=== PATIENT | female | born 1945 | race Caucasian/White ===

== ENCOUNTER 2016-05-09 11:05 | Outpatient (CLI) ==
[2015-02-02 09:24] VITALS: BMI 22.4
[2016-05-09] MEDS: PROLIA SUBCUT STA (11:11)
[2016-05-09 11:22] VITALS: BP 120/60; TEMP 98
== END 2016-05-09 11:06 | disposition home or self-care (01) ==
LOC: OPMED 11:05
PROVIDERS: ATTEND Emergency Medicine
DX: M81.0 Age-related osteoporosis without current pathological fracture (principal)
CPT/HCPCS: 96372

== ENCOUNTER 2016-08-22 13:44 | Outpatient (CLI) ==
[2015-02-02 09:24] VITALS: BMI 22.4
== END 2016-08-22 13:45 | disposition home or self-care (01) ==
LOC: RAD 13:44
PROVIDERS: ATTEND Internal Medicine
DX: Z12.31 Encounter for screening mammogram for malignant neoplasm of breast (principal)

== ENCOUNTER 2016-11-12 11:06 | Outpatient (CLI) ==
[2015-02-02 09:24] VITALS: BMI 22.4
[2016-11-12] MEDS: PROLIA SUBCUT STA (11:40)
[2016-11-12 12:05] VITALS: BP 168/72; TEMP 97.9
== END 2016-11-12 11:07 | disposition home or self-care (01) ==
LOC: OPMED 11:06
PROVIDERS: ATTEND Internal Medicine
DX: M81.0 Age-related osteoporosis without current pathological fracture (principal)
CPT/HCPCS: 96372

== ENCOUNTER 2017-02-28 07:40 | Outpatient (CLI) ==
[2015-02-02 09:24] VITALS: BMI 22.4
--- NOTE | 2017-02-28 08:58 | DI ---
EXAM: Two views of the chest. History: Short of breath Comparison: Chest radiograph 10/12/2016 Findings: Heart size is normal. No focal consolidation. No appreciable pleural fluid and no pneumo thorax. Atherosclerotic calcifications of the aortic knob. There is hyperinflation. No acute osseo us abnormalities. Impression: No acute cardiopulmonary process. Possible chronic obstructive pulmonary disease
== END 2017-02-28 07:41 | disposition home or self-care (01) ==
LOC: CAR 07:40
PROVIDERS: ATTEND Internal Medicine
DX: R06.02 Shortness of breath (principal); J44.9 Chronic obstructive pulmonary disease, unspecified
CPT/HCPCS: 93005; 93010

== ENCOUNTER 2017-03-12 06:48 | Outpatient (CLI) ==
[2015-02-02 09:24] VITALS: BMI 22.4
--- NOTE | 2017-03-13 09:35 | STRESSECHO ---
Date of Test: 03/12/17 Reason for Exam: SOB, COPD Ordering Physician: DR. TAWANNA NICHOLS Current Medications: TRAMADOL, LISINOPRIL, METOPROLOL, ELIQUIS, CLONAZEPAM, Physical Findings: S1, S2, NO S3 Resting EKG: SINUS RHYTHM/ NO ACUTE CHANGES Target Heart Rate: 125/148 STAGE MPH/GRADE HEART RATE BPM BLOOD PRESSURE mmhg RHYTHM S-T SEGMENT +/- UP DOWN SYMPTOMS,COMMENTS At Rest 65 138/60 SR X NONE 1 1.7/10% 140/82 SR X NONE 2 2.5/12% 3 3.4/14% 4 4.2/16% 5 5.0/18% Immediately after 123 SR X FATIGUE Durations of Exercise: 3:33 Maximum Heart Rate Reached: 123 Reason for Termination: FATIGUE 4 MINUTES POST EXERCISE: HR 70 BPM, BP 142/70 MMHG, SR, +/-, NO COMMENTS INTERPRETATION: 98% OXYGEN SATURATION WITH EXERCISE ON ROOM AIR METS 4.0 1. NO EVIDENCE OF ISCHEMIA BY ST-T WAVE 2. NO CHEST PAIN OR DISCOMFORT 3. NO ARRHYTHMIAS WITH EXERCISE , POST EXERCISE PAC'S/ FEW PVC'S 4. BLOOD PRESSURE RESPONSE:NORMAL NORMAL LEFT VENTRICULAR CONTRACTILITY RESTING AND POST EXERCISE MTDD
--- NOTE | 2017-03-13 09:51 | ECHOSTRESS ---
Date of Exam: 03/12/17 Ordering Physician: DR. TAWANNA NICHOLS Reason for Echo: SOB, COPD, STRESS TEST--NO ISCHEMIA M-Mode Normal Adult Results LV Dimensions Normal Adult Results AoV Opening excursions >1.6 LVEDD-base- 3.5-5.8 Ao root dimensions 2.0-3.7 LVESD-base- 3.1-4.6 L. Atrium dimensions 1.9-3.8 Post. Wall thickness 0.8-1.1 IV septum (thickness) 0.7-1.2 Post. Wall excursion 0.72-1.3 Septal motion Systolic motion R. Ventricular cavity 1.5-2.0 LVEF 60% Paradoxical septal wall motion 2-D: NORMAL LEFT VENTRICULAR CONTRACTILITY--RESTING AND POST EXERCISE M-MODE: MV: AV: TV: PV: CHAMBER SIZE: WALL MOTION: NORMAL LEFT VENTRICULAR CONTRACTILITY--RESTING AND POST EXERCISE PERICARDIUM: INTERPRETATION: 1. NORMAL LEFT VENTRICULAR CONTRACTILITY--RESTING AND POST EXERCISE MTDD
== END 2017-03-12 06:49 | disposition home or self-care (01) ==
LOC: CAR 06:48
PROVIDERS: ATTEND Internal Medicine
DX: R06.02 Shortness of breath (principal); J44.9 Chronic obstructive pulmonary disease, unspecified

== ENCOUNTER 2017-05-13 10:55 | Outpatient (CLI) ==
[2015-02-02 09:24] VITALS: BMI 22.4
[2017-05-13 11:07] VITALS: BP 182/86; TEMP 97.8
[2017-05-13] MEDS ORDERED: PROLIA SUBCUT STA (11:08)
== END 2017-05-13 10:56 | disposition home or self-care (01) ==
LOC: OPMED 10:55
PROVIDERS: ATTEND Internal Medicine
DX: M81.0 Age-related osteoporosis without current pathological fracture (principal); M19.90 Unspecified osteoarthritis, unspecified site
CPT/HCPCS: 96372

== ENCOUNTER 2017-07-01 13:51 | Outpatient (CLI) ==
[2015-02-02 09:24] VITALS: BMI 22.4
--- NOTE | 2017-07-01 15:40 | CT ---
EXAM: CT lumbar spine without contrast HISTORY: Low back pain with sciatica COMPARISON: MRI 04/27/2015 TECHNIQUE: CT of the lumbar spine performed without intravenous contrast. Coronal and sagittal refo rmatted images obtained. FINDINGS: Bones appear demineralized. Vertebral bodies normal height. No fracture. No subluxation . Multilevel marginal osteophytes. Mild multilevel intervertebral disc space narrowing. Degenerati ve changes. Sacroiliac joints intact with mild degenerative change of the aorta normal in caliber wi th extensive atherosclerosis. Colonic diverticulosis, incompletely imaged. T12-L1: No central canal or neural foraminal narrowing. L1-L2: No central canal or neural foraminal narrowing. L2-L3: Posterior disc osteophyte complex eccentric to the right with possible protrusion in this reg ion, as well as and facet arthrosis causing mild central canal and mild bilateral neural foraminal na rrowing L3-L4: Posterior disc osteophyte complex and facet arthrosis causing mild central canal and moderate bilateral neural foraminal narrowing. L4-L5: Posterior disc osteophyte complex and facet arthrosis causing mild central canal and moderate bilateral neural foraminal narrowing. L5-S1: Posterior disc osteophyte complex and facet arthrosis causing mild bilateral neural foraminal narrowing. IMPRESSION: 1. No fracture or subluxation. 2. Chronic discogenic degenerative disease and facet arthrosis. Please see segmental analysis, noti ng multilevel narrowing. Possible protrusion at L2-L3. Findings can be correlated with MRI. 3. Extensive atherosclerosis
== END 2017-07-01 13:52 | disposition home or self-care (01) ==
LOC: RAD 13:51
PROVIDERS: ATTEND Internal Medicine
DX: M54.42 Lumbago with sciatica, left side (principal)

== ENCOUNTER 2017-08-29 12:53 | Inpatient (IN) | payer OTHER ==
[2015-02-02 09:24] VITALS: BMI 22.4
[2017-08-29] MEDS ORDERED: TORADOL IVP PRN (13:17)
[2017-08-29] MEDS ORDERED: NUBAIN IVP PRN (13:17)
[2017-08-29] MEDS: DEXTROSE 5%-1/2NS IV SOLUTION 1,000 ML IV SCH (13:36)
[2017-08-29] MEDS ORDERED: PROLIA SUBCUT SCH (14:00)
[2017-08-29] MEDS ORDERED: DILAUDID 2 MG/ML SYRINGE IVP PRN (14:17)
[2017-08-29] MEDS ORDERED: VISTARIL INJ IM PRN (14:21)
[2017-08-29] MEDS ORDERED: ATROPINE SULFATE PFS IVP PRN (14:21)
[2017-08-29] MEDS ORDERED: MORPHINE 4 MG/ML VIAL IVP PRN (14:21)
[2017-08-29] MEDS ORDERED: TYLENOL PO PRN (14:21)
[2017-08-29] MEDS ORDERED: NITROSTAT SL PRN (14:21)
[2017-08-29] MEDS: TORADOL IVP SCH ×3 (14:53→23:25)
--- NOTE | 2017-08-29 15:43 | DI ---
EXAM: PA and lateral views of the chest HISTORY: Cough. COMPARISON: Chest x-ray 02/28/2017 and multiple priors FINDINGS: The cardiomediastinal silhouette is unremarkable. There is no pneumothorax or pleural eff usion. Lungs are hyperinflated. There is no consolidation, nodule or mass. The osseous structures demonstrate degenerative disease of the spine. IMPRESSION: No acute cardiopulmonary process none hyperinflated lungs suggestive of chronic obstruct kamar pulmonary disease.
[2017-08-29] MEDS: NICODERM 21 MG TD SCH (16:30)
[2017-08-29] MEDS: LOPRESSOR PO SCH (20:29)
[2017-08-29] MEDS: KLONOPIN PO SCH (20:29)
[2017-08-29] MEDS: ELIQUIS PO SCH (20:29)
[2017-08-29] MEDS: ZOCOR PO SCH (20:29)
[2017-08-29] MEDS ORDERED: NON-FORMULARY MEDICATION (Simvastatin [Simvastatin] 20 MG) PO SCH (21:00)
--- NOTE | 2017-08-29 22:47 | CT ---
EXAM: CT abdomen pelvis without contrast HISTORY: Right-sided pain and hematuria. Patient with history of appendectomy. COMPARISON: CT lumbar spine 07/01/2017 TECHNIQUE: Serial axial images of the abdomen pelvis were performed from the lung bases through the inferior pelvis without contrast. These were viewed in multiple planes. FINDINGS: Lung bases are clear. Evaluation is limited due to lack of contrast. The kidneys demonstrate no hydronephrosis, hydrourete r or stone. The liver and gallbladder are normal. The the left kidney demonstrates a low attenuation lesion measuring 2.3 cm in diameter with Hounsfield units suggestive of a cyst. The pancreas is unre markable. The stomach is distended with a large posterior stomach diverticulum noted with an air-flu id level. This is unchanged since prior examination. Small bowel in the abdomen and pelvis is unremarkable. The colon demonstrates diverticuli without di verticulitis. Uterus is unremarkable. Urinary bladder is distended. There is mild atherosclerotic disease. There is mild degenerative disease. IMPRESSION: 1. No obstructive uropathy or renal stone to account for patient right-sided flank pain and hematuri a. 2. Unchanged diverticulum of the stomach. 3. Low attenuation left renal lesion most consistent with a cyst. 4. Scattered atherosclerotic disease and degenerative disease of the lumbosacral spine. 5. Few scattered diverticuli without diverticulitis.
[2017-08-30] MEDS: DEXTROSE 5%-1/2NS IV SOLUTION 1,000 ML IV SCH ×2 (00:19→20:14)
[2017-08-30] MEDS: TORADOL IVP SCH ×3 (05:11→18:41)
[2017-08-30] MEDS: VITAMIN D PO SCH (08:38)
[2017-08-30] MEDS: NICODERM 21 MG TD SCH (08:39)
[2017-08-30] MEDS: ZESTRIL PO SCH (08:39)
[2017-08-30] MEDS: KLONOPIN PO SCH ×2 (08:40→20:13)
[2017-08-30] MEDS: ELIQUIS PO SCH ×2 (08:40→20:14)
[2017-08-30] MEDS ORDERED: DECADRON 4 MG/ML SDV IM STA (09:00)
--- NOTE | 2017-08-30 09:05 | PCM.PROG ---
Attending Provider: ATTENDING PROVIDER: Dr. TAWANNA NICHOLS This patient is seen with Roxanne Means, Nurse Practitioner. DATE OF SERVICE: 08/30/17 SUBJECTIVE: This 72 year old WHITE/ F was hospitalized 08/29/17. The patient is lying in bed, alert. The patient has been up to chair. She states pain is slightly improved. She was able to sit up in chair yesterday. CT scan showed no kidney stone, repeat urine showed 2+ blood. REVIEW OF SYSTEMS: CONSTITUTIONAL: No night sweats. No fatigue, malaise, lethargy. No fever or chills. HEENT: Eyes: No visual changes. No eye pain. No eye discharge. ENT: No runny nose. No epistaxis. No sinus pain. No odynophagia. No congestion. RESPIRATORY: No cough, no congestion. No hemoptysis. No shortness of breath. CARDIOVASCULAR: No angina symptoms. No CHF symptoms. No atypical chest pain for CAD. No palpitations. No orthopnea.. GASTROINTESTINAL: No abdominal pain. No nausea or vomiting. No diarrhea or constipation. No hematemesis. No hematochezia. GENITOURINARY: No urgency. No frequency. No dysuria. No hematuria. No obstructive symptoms. No discharge. No pain. No significant abnormal bleeding. MUSCULOSKELETAL: Right lower back pain with right sciatica. NEUROLOGICAL: Awake, alert, oriented to time, place and person. No headache. No neck pain. No syncope. No seizures. No dizziness. PSYCHIATRIC: Not anxious. No depression. No suicidal thoughts. No homicidal thoughts. SKIN: No rash. No lesions. No wounds. ENDOCRINE: No unexplained weight loss. No weight gain. HEMATOLOGIC/LYMPHATIC: No anemia. No purpura. No petechiae. No prolonged or excessive bleeding. No palpable lymph nodes. PHYSICAL EXAMINATION: GENERAL: The patient is awake, alert and oriented, lying in bed in no distress. VITAL SIGNS: Temperature 97.6 F, Pulse 58, Respiratory Rate 18, BP 160/77, Pulse Ox 100% HEENT: Head normocephalic, atraumatic. Eyes: Extraocular muscles are intact. Pupils are equal, round and reactive to light and accommodation. Ears: No lesions. Nose appeared normal. Throat: No exudate or erythema. NECK: Supple. No JVD, no carotid bruit. No lymphadenopathy or thyromegaly. LUNGS: Diminished breath sounds. Clear to auscultation. Percussion note normal. Chest symmetrical. HEART: S1, S2, no S3. No murmurs. No cyanosis or clubbing. No ascites. Pulses: Dorsalis pedis and posterior tibial pulses +1 to +2 both sides. ABDOMEN: Soft. Non-tender. Bowel sounds active. No CVA tenderness. No mass felt. EXTREMITIES: Right SI joint tenderness. No edema. Full range of motion of all extremities, equal. NEUROLOGIC: No focal deficit. Cranial nerves II through XII are grossly intact. No headache, no double vision or headache. SKIN: Not dry. Intact. Turgor-normal. LYMPHATIC: No palpable lymph nodes/no lymphedema. MUSCULOSKELETAL: Normal joints with no swelling. Muscle tone is normal. LAB REVIEW: 08/30/17 04:30 08/30/17 04:30 08/30/17 04:30: Sodium 132 L, Potassium 3.8, Chloride 99, Carbon Dioxide 25, Anion Gap 11.8, BUN 9, Creatinine 0.78, Estimated GFR (MDRD) 72.00, BUN/ Creatinine Ratio 11.53, Glucose 184 H D, Calcium 9.1, Total Bilirubin 0.5, AST 31, ALT 27, Alkaline Phosphatase 51 L, Total Protein 7.0, Albumin 3.4, Globulin 3.6, Albumin/Globulin Ratio 0.94 08/30/17 04:30: WBC 7.34, RBC 4.26, Hgb 13.5, Hct 38.8, MCV 91.1, MCH 31.7 H, MCHC 34.8, RDW Coeff of Gerry 12.3, Plt Count 234, Immature Gran % (Auto) 0.4, Neut % (Auto) 77.3, Lymph % (Auto) 18.1, Cobb % (Auto) 4.1, Eos % (Auto) 0.0, Baso % (Auto) 0.1, Immature Gran # (Auto) 0.0, Neut # (Auto) 5.7, Lymph # (Auto ) 1.3, Cobb # (Auto) 0.3 L, Eos # (Auto) 0.0, Baso # (Auto) 0.0 08/29/17 15:50: Urine Color Yellow, Urine Clarity Clear, Urine pH 6.0, Ur Specific [place] 1.010, Urine Protein Negative, Urine Glucose (UA) Negative, Urine Ketones Negative, Urine Blood 2+, Urine Nitrite Negative, Urine Bilirubin Negative, Urine Urobilinogen 0.2, Ur Leukocyte Esterase Negative, Urine Microscopic RBC 5-10, Ur Squamous Epith Cells Not present 08/29/17 13:45: WBC 8.34, RBC 4.48, Hgb 14.0, Hct 40.8, MCV 91.1, MCH 31.3 H, MCHC 34.3, RDW Coeff of Gerry 12.5, Plt Count 226, Immature Gran % (Auto) 0.2, Neut % (Auto) 81.5, Lymph % (Auto) 13.7, Cobb % (Auto) 3.6, Eos % (Auto) 0.4, Baso % (Auto) 0.6, Immature Gran # (Auto) 0.0, Neut # (Auto) 6.8, Lymph # (Auto ) 1.1, Cobb # (Auto) 0.3 L, Eos # (Auto) 0.0, Baso # (Auto) 0.1 08/29/17 13:40: Sodium 135 L, Potassium 4.8, Chloride 102, Carbon Dioxide 25, Anion Gap 12.8, BUN 8, Creatinine 0.77, Estimated GFR (MDRD) 73.00, BUN/ Creatinine Ratio 10.38, Glucose 122 H, Calcium 9.5, Total Bilirubin 0.6, AST 16 , ALT 17, Alkaline Phosphatase 56, Total Protein 7.5, Albumin 3.8, Globulin 3.7 , Albumin/Globulin Ratio 1.03 ASSESSMENT: 1. RIGHT LOWER BACK PAIN 2. RIGHT SCIATICA 3. MICROSCOPIC HEMATURIA 4. ATRIAL FIBRILLATION 5. HYPERTENSION PLAN: 1. Decadron 4 mg IM 2. Stop IV fluids Plan and coordination of the patient's care discussed in the presence of Agricultural Purchasing Agent and nurse. CONDITION: Stable SCRIBED BY: STEFANI FALK Data Management Engineer scribed while in presence of service performed by Dr. Nichols/Roxanne Means APRN on 08/30/17 ([id number])
[2017-08-30] MEDS: ULTRAM PO SCH (09:06)
[2017-08-30] MEDS: LOPRESSOR PO SCH ×2 (09:06→20:13)
--- NOTE | 2017-08-30 10:46 | HP ---
DATE OF SERVICE: 08/29/17 HISTORY OF PRESENT ILLNESS: This 72-year-old female presented with right sciatic pain, right flank pain times three days. She had CT scan of spine on 07/05 which revealed disk bulges on left. She now decides she wants a neurosurgeon. She can't get out of chair because of pain, rated as a 12 on a 1-10 scale. She has not eaten anything. PAST MEDICAL HISTORY: DJD L-spine with left sciatica Chronic pain syndrome JIMENA COPD MENSTRUAL HISTORY: 1989 PAST SURGICAL HISTORY: T & A childhood Right ovary removed Appendectomy Tubal ligation REVIEW OF SYSTEMS: CONSTITUTIONAL: Fatigue. No fever. HEENT: No sinus drainage, no sore throat. RESPIRATORY: No cough, no congestion. CARDIOVASCULAR: No atypical chest pain for coronary artery disease. No angina , CHF symptoms, palpitations or shortness of breath. GASTROINTESTINAL: GERD symptoms. Abdominal pain. Right flank pain. No melena. No GERD. GENITOURINARY: No hematuria, no polyuria. SHIPPING/RECEIVING CLERK: No blackout, no dizziness, no headache, no double vision. Gait: Limping gait, can't sit. MUSCULOSKELETAL: Osteoarthritis pain. ENDOCRINE: No weight loss, no weight gain. SKIN: Not dry, no rash. PSYCHIATRIC: Not anxious, no depression, no suicidal thoughts, no homicidal thoughts. SOCIAL HISTORY: Smoker, one pack per day for 35 years. No drug use. Single. No alcohol use. Retired. Two children (one boy, age 53; one girl, age 48). Retired. FAMILY HISTORY: Father of cancer. Mother of CAD. Brother(s) - Two brothers alive with CAD, two brothers with COPD (one age 2). Sister(s) - three alive, one , one is a twin with diabetes mellitus. MEDICATIONS: (HOME) Eliquis 5 mg b.i.d. Metoprolol 25 mg b.i.d. Lisinopril 10 mg daily Clonazepam 0.5 mg b.i.d Vitamin D 2000 mg daily Prolia 60 mg q.6month Tramadol 50 daily Simvastatin 20 mg Increase Elipta one puff daily ALLERGIES: LIPITOR (LEG CRAMPS) PHYSICAL EXAMINATION: V/S: Pulse 78, BP 132/80, 02 sat 100%. Height 5'2", BMI 22.6. Height 5'2"; weight 123.6 lbs. GENERAL APPEARANCE: Oriented times three. HEENT: Normal. NECK: No JVP, no bruits. RESPIRATORY: Lungs are clear with decreased breath sounds. CARDIOVASCULAR: S1, S2, no S3, no murmurs. No cyanosis, clubbing. No ascites. GI/ABDOMEN: No tenderness. Bowel sounds are active. EXTREMITIES: No edema, pulses +1, equal. SHIPPING/RECEIVING CLERK: Deep tendon reflexes, sensory, motor and gait all normal. RECTAL/PELVIC: Colonoscopy in 2010. Pelvic: Mammogram 09/03 [facility] [place] ASSESSMENT: 1. RIGHT RENAL COLIC QUESTIONABLE 2. HEMATURIA 3. ACUTE RIGHT SCIATICA, RIGHT SIDE PAIN 4. DJD L-SPINE WITH LEFT SCIATICA 5. CHRONIC PAIN SYNDROME 6. JIMENA 7. COPD 8. ATRIAL FIBRILLATION ON ELIQUIS 9. OSTEOPOROSIS 10. HYPERTENSION 11. DYSLIPIDEMIA 12. NONCOMPLIANCE 13. MOLE ON BACK PLAN: 1. Admit with routine telemetry orders. 2. 1000 cc D5 1/2 NS [address] scan of abdomen and pelvis - renal stone protocol 4. Toradol 30 mg IV now and 6 hourly 5. Nubain 2 mg q.6 hourly for pain 6. Continue all home medications 7. Regular diet 8. CBC, CMP daily 9. UA - strain all urine TIME SPENT: More than 70 minutes. MTDD
--- NOTE | 2017-08-30 13:57 | PN ---
DATE OF SERVICE: 08/30/17 SUBJECTIVE: The patient was hospitalized with right renal colic type of symptoms. The patient's condition is starting to improve in a way of less pain on the right flank area. The patient's CT scan of the abdomen and pelvis didn't show any renal stones or problem with any urological problems. The patient's flank pain could be muscle spasm with sciatica. She is being given 1 cc of Decadron. Pain seems to be under control. The patient is up and about. The patient may eventually need workup for her hematuria. She had 2+ blood in the urine. Will repeat the U/A tomorrow. The patient is afebrile with no evidence of urinary tract infection. CONDITION: stable. TIME SPENT: More than 30 minutes. Plan and coordination of the patient's care discussed in the presence of nurse. [place]
--- NOTE | 2017-08-30 16:46 | CT ---
EXAM: CT LUMBAR SPINE HISTORY: Back pain TECHNIQUE: CT lumbar spine without contrast. 3-mm axial sections. Coronal and sagittal reformation s. COMPARISON: 07/01/2017 FINDINGS: Bones appear demineralized. No acute fracture or spondylolisthesis. Vertebral body height is mainta ined. There is subtle scoliosis. Sacroiliac joints have mild arthropathy. Diffuse degenerative dis c and facet disease most apparent at L2/L3 where there is a broad-based disc bulging leading to moder ate central canal stenosis, greater right paracentral. Bilateral neural foraminal narrowing at this level, relatively severe on the right. In addition, there is a broad-based disc bulging and severe f acet arthropathy at L4/L5 leading to at least mild central canal stenosis and bilateral neural forami nal narrowing. These findings are similar to that previously seen. No paraspinal fluid collection o r inflammatory process is obvious. Incidental note of atherosclerotic disease. IMPRESSION: Similar findings of that seen on 07/01/2017 including degenerative disc and facet disease most appare nt L2/L3. Correlation with MRI can be made if indicated.
[2017-08-30] MEDS: ZOCOR PO SCH (20:13)
[2017-08-31] MEDS: TORADOL IVP SCH ×5 (00:25→23:56)
[2017-08-31] MEDS ORDERED: DILAUDID 2 MG/ML SYRINGE IVP PRN (03:11)
[2017-08-31] MEDS ORDERED: DECADRON 4 MG/ML SDV IVP STA (07:46)
[2017-08-31] MEDS: NICODERM 21 MG TD SCH (08:54)
[2017-08-31] MEDS: ZESTRIL PO SCH (08:55)
[2017-08-31] MEDS: LOPRESSOR PO SCH ×2 (08:55→21:21)
[2017-08-31] MEDS: ELIQUIS PO SCH ×2 (08:55→21:22)
[2017-08-31] MEDS: KLONOPIN PO SCH ×2 (09:07→21:24)
[2017-08-31] MEDS: VITAMIN D PO SCH (09:07)
[2017-08-31] MEDS: ULTRAM PO SCH (10:20)
[2017-08-31] MEDS: ZOCOR PO SCH (21:24)
[2017-09-01] MEDS: TORADOL IVP SCH ×4 (05:46→23:39)
[2017-09-01] MEDS: ULTRAM PO SCH (09:37)
[2017-09-01] MEDS: LOPRESSOR PO SCH ×2 (09:37→21:19)
[2017-09-01] MEDS: KLONOPIN PO SCH ×2 (09:37→21:19)
[2017-09-01] MEDS: ZESTRIL PO SCH (09:38)
[2017-09-01] MEDS: VITAMIN D PO SCH (09:38)
[2017-09-01] MEDS: ELIQUIS PO SCH ×2 (09:38→21:19)
[2017-09-01] MEDS: NICODERM 21 MG TD SCH (09:42)
[2017-09-01] MEDS: ZOCOR PO SCH (21:19)
[2017-09-02] MEDS: TORADOL IVP SCH ×4 (05:26→23:21)
[2017-09-02] MEDS: LOPRESSOR PO SCH ×2 (08:21→20:31)
[2017-09-02] MEDS: NICODERM 21 MG TD SCH (08:21)
[2017-09-02] MEDS: VITAMIN D PO SCH (08:21)
[2017-09-02] MEDS: KLONOPIN PO SCH ×2 (08:22→20:31)
[2017-09-02] MEDS ORDERED: ZOFRAN 4 MG/2 ML IVP STA (08:23)
[2017-09-02] MEDS ORDERED: PROTONIX PO STA (08:24)
[2017-09-02] MEDS: ULTRAM PO SCH (08:25)
[2017-09-02] MEDS: ZESTRIL PO SCH (08:29)
[2017-09-02] MEDS: ELIQUIS PO SCH ×2 (08:29→20:31)
--- NOTE | 2017-09-02 09:22 | PCM.PROG ---
Attending Provider: ATTENDING PROVIDER: Dr. TAWANNA NICHOLS This patient is seen with Roxanne Means, Nurse Practitioner. DATE OF SERVICE: 09/02/17 SUBJECTIVE: This 72 year old WHITE/ F was hospitalized 08/29/17. The patient is sitting up in bed alert. She is feeling nauseous. She has had increased belching this morning. Will give Protonix and Zofran. REVIEW OF SYSTEMS: CONSTITUTIONAL: No night sweats. No fatigue, malaise, lethargy. No fever or chills. HEENT: Eyes: No visual changes. No eye pain. No eye discharge. ENT: No runny nose. No epistaxis. No sinus pain. No odynophagia. No congestion. RESPIRATORY: No cough, no congestion. No hemoptysis. No shortness of breath. CARDIOVASCULAR: No angina symptoms. No CHF symptoms. No atypical chest pain for CAD. No palpitations. No orthopnea.. GASTROINTESTINAL: Nausea. No abdominal pain. No vomiting. No diarrhea or constipation. No hematemesis. No hematochezia. GENITOURINARY: No urgency. No frequency. No dysuria. No hematuria. No obstructive symptoms. No discharge. No pain. No significant abnormal bleeding. MUSCULOSKELETAL: Chronic back pain. NEUROLOGICAL: Awake, alert, oriented to time, place and person. No headache. No neck pain. No syncope. No seizures. No dizziness. PSYCHIATRIC: Not anxious. No depression. No suicidal thoughts. No homicidal thoughts. SKIN: No rash. No lesions. No wounds. ENDOCRINE: No unexplained weight loss. No weight gain. HEMATOLOGIC/LYMPHATIC: No anemia. No purpura. No petechiae. No prolonged or excessive bleeding. No palpable lymph nodes. PHYSICAL EXAMINATION: GENERAL: The patient is awake, alert and oriented, sitting in bed in no distress. VITAL SIGNS: Temperature 97.4 F, Pulse 58, Respiratory Rate 20, BP 131/68, Pulse Ox 100% HEENT: Head normocephalic, atraumatic. Eyes: Extraocular muscles are intact. Pupils are equal, round and reactive to light and accommodation. Ears: No lesions. Nose appeared normal. Throat: No exudate or erythema. NECK: Supple. No JVD, no carotid bruit. No lymphadenopathy or thyromegaly. LUNGS: Diminished breath sounds. Clear to auscultation. Percussion note normal. Chest symmetrical. HEART: S1, S2, no S3. No murmurs. No cyanosis or clubbing. No ascites. Pulses: Dorsalis pedis and posterior tibial pulses +1 to +2 both sides. ABDOMEN: Soft. Non-tender. Bowel sounds active. No CVA tenderness. No mass felt. EXTREMITIES: No edema. Full range of motion of all extremities, equal. NEUROLOGIC: No focal deficit. Cranial nerves II through XII are grossly intact. No headache, no double vision or headache. SKIN: Not dry. Intact. Turgor-normal. LYMPHATIC: No palpable lymph nodes/no lymphedema. MUSCULOSKELETAL: Normal joints with no swelling. Muscle tone is normal. LAB REVIEW: 09/02/17 04:50 09/02/17 04:50 09/02/17 04:50: Sodium 128 L, Potassium 3.9, Chloride 97 L, Carbon Dioxide 22 L , Anion Gap 12.9, BUN 24 H, Creatinine 0.93, Estimated GFR (MDRD) 59.00, BUN/ Creatinine Ratio 25.80, Glucose 108, Calcium 8.3, Total Bilirubin 0.4, AST 10 L , ALT 12, Alkaline Phosphatase 39 L, Total Protein 5.5 L, Albumin 2.9 L, Globulin 2.6, Albumin/Globulin Ratio 1.12 09/02/17 04:50: WBC 15.25 H, RBC 4.14 L, Hgb 13.1, Hct 37.2, MCV 89.9, MCH 31.6 H, MCHC 35.2, RDW Coeff of Gerry 12.4, Plt Count 234, Immature Gran % (Auto) 0.4, Neut % (Auto) 71.7, Lymph % (Auto) 17.0, [place] % (Auto) 9.9, Eos % (Auto) 0.7, Baso % (Auto) 0.3, Immature Gran # (Auto) 0.1, Neut # (Auto) 11.0 H, Lymph # ( Auto) 2.6, [place] # (Auto) 1.5, Eos # (Auto) 0.1, Baso # (Auto) 0.0 09/01/17 09:35: Urine Color Yellow, Urine Clarity Clear, Urine pH 6.0, Ur Specific [place] 1.010, Urine Protein Negative, Urine Glucose (UA) Negative, Urine Ketones Negative, Urine Blood 1+, Urine Nitrite Negative, Urine Bilirubin Negative, Urine Urobilinogen 0.2, Ur Leukocyte Esterase Trace, Urine Microscopic RBC 2-5, Ur Squamous Epith Cells 0-2 ASSESSMENT: 1. GERD 2. RIGHT LOWER BACK PAIN 3. RIGHT SCIATICA 4. MICROSCOPIC HEMATURIA 5. ATRIAL FIBRILLATION 6. HYPERTENSION PLAN: 1. Protonix 40 mg p.o. now 2. Zofran 4 mg IV Plan and coordination of the patient's care discussed in the presence of Legal Support Assistant and nurse. CONDITION: Stable SCRIBED BY: STEFANI FALK Door Slinger scribed while in presence of service performed by Dr. Nichols/Roxanne Means APRN on 09/02/17 ([id number])
[2017-09-02] MEDS: ZOCOR PO SCH (20:30)
[2017-09-03] MEDS: TORADOL IVP SCH (05:40)
[2017-09-03] MEDS: KLONOPIN PO SCH (08:11)
[2017-09-03] MEDS: ZESTRIL PO SCH (08:11)
[2017-09-03] MEDS: LOPRESSOR PO SCH (08:11)
[2017-09-03] MEDS: VITAMIN D PO SCH (08:11)
[2017-09-03] MEDS: NICODERM 21 MG TD SCH (08:11)
[2017-09-03] MEDS: ULTRAM PO SCH (08:11)
[2017-09-03] MEDS: ELIQUIS PO SCH (08:12)
[2017-09-03 09:51] VITALS: BP 125/70; TEMP 97.8
--- NOTE | 2017-09-03 10:32 | CM.DICTOOL ---
ADMISSION: 08/29/17 12:53 DISCHARGE: SEPTEMBER 03, 2017 DATE OF SERVICE: 09/03/17 FINAL DIAGNOSIS RIGHT SCIATICA, ACUTE RIGHT RENAL COLIC HEMATURIA ATRIAL FIB (ON ELIQUIS) HYPERTENSION COPD DJD LUMBAR SPINE CHRONIC PAIN SYNDROME DYSLIPIDEMIA OSTEOPOROSIS HYPONATREMIA APPENDECTOMY OOPHORECTOMY, RIGHT HISTORY OF ABLATION OF NERVES IN THE BACK (DR. MCGUIRE) LAST VITALS Temp Pulse Resp BP Pulse Ox 98.2 F 60 18 124/67 97 09/03/17 05:22 09/03/17 05:22 09/03/17 05:22 09/03/17 05:22 09/03/17 05:22 TAKE THESE MEDICATIONS AT HOME Apixaban (Eliquis) 5 mg PO BID [facility] Last Admin: 09/03/17 08:12 Dose: 5 mg Cholecalciferol (Vitamin D) 2,000 unit PO DAILY [facility] Last Admin: 09/03/17 08:11 Dose: 2,000 unit Clonazepam (Klonopin) 0.5 mg PO BID [facility] Last Admin: 09/03/17 08:11 Dose: 0.5 mg Lisinopril (Zestril) 10 mg PO DAILY [facility] Last Admin: 09/03/17 08:11 Dose: 10 mg Metoprolol Tartrate (Lopressor) 25 mg PO BID [facility] Last Admin: 09/03/17 08:11 Dose: 25 mg Simvastatin (Zocor) 20 mg PO BEDTIME [facility] Last Admin: 09/02/17 20:30 Dose: 20 mg Tramadol HCl (Ultram) 50 mg PO BID PRN Last Admin: 09/03/17 08:11 Dose: 50 mg Prolia 60 mg SQ as directed Last Admin: ALLERGIES Iodinated Contrast- Oral and IV Dye [Iodinated Contrast Media - IV Dye] Allergy (Severe, Verified 01/15/15 00:28) Hives Iodine and Iodide Containing Produc Adverse Reaction (Verified 01/15/15 00:28) Sulfa (Sulfonamide Antibiotics) Adverse Reaction (Verified 01/15/15 00:28) Discontinued Medications None NEW PRESCRIPTIONS: Ultram 50 mg take 1 twice a day as needed for pain Lisinopril 10 mg take 1 daily (not a new RX) SMOKING: Advised to stop smoking DISEASE SPECIFIC EDUCATION: Medications Appointments Activity Hyponatremia LAB REVIEW: 09/03/17 04:15 09/03/17 04:15 09/03/17 04:15: Sodium 129 L, Potassium 4.1, Chloride 101, Carbon Dioxide 22 L, Anion Gap 10.1, BUN 14, Creatinine 0.80, Estimated GFR (MDRD) 70.00, BUN/ Creatinine Ratio 17.50, Glucose 125 H, Calcium 8.6, Total Bilirubin 0.5, AST 16 , ALT 16, Alkaline Phosphatase 47 L, Total Protein 5.6 L, Albumin 2.6 L, Globulin 3.0, Albumin/Globulin Ratio 0.87 09/03/17 04:15: WBC 12.35 H, RBC 4.04 L, Hgb 12.6, Hct 36.0 L, MCV 89.1, MCH 31.2 H, MCHC 35.0, RDW Coeff of Gerry 12.5, Plt Count 206, Immature Gran % (Auto) 0.4, Neut % (Auto) 73.6, Lymph % (Auto) 16.4, Cole % (Auto) 7.8, Eos % (Auto) 1.4, Baso % (Auto) 0.4, Immature Gran # (Auto) 0.1, Neut # (Auto) 9.1 H, Lymph # (Auto) 2.0, Cole # (Auto) 1.0, Eos # (Auto) 0.2, Baso # (Auto) 0.1 PLAN: Discharge home Diet: Regular as tolerated Activity: Gradually resume as tolerated Avoid lifting, pushing, pulling An appointment is scheduled with Dr. Whatley on September 04 at 10 am An appointment is scheduled with /Roxanne Means APRN on September 09 at 12 noon Full Code status is requested by the patient Ms. Arnold is alert and oriented. She lives alone and is independent with Activities of Daily Living. She is independent with transfers and with ambulation in the room and hallway. Gait is slow and steady. Ms. Arnold is continent of bowel and bladder. Meal intakes are good at 50-100%. No abdominal pain or nausea reported. Chronic type back pain is reported by the patient that is rated at a 5 on the pain scale. No decubitus ulcers, skin rashes or irritation noted at time of discharge. Uriah Patel MD [facility] Sánchez
--- NOTE | 2017-09-03 13:30 | PCM.PROG ---
Attending Provider: ATTENDING PROVIDER: Dr. TAWANNA NICHOLS This patient is seen with Roxanne Means, Nurse Practitioner. DATE OF SERVICE: 09/03/17 SUBJECTIVE: This 72 year old WHITE/ F was hospitalized 08/29/17. The patient is lying in bed, alert. She is feeling better today. Back pain under control. She has been eating well, up and about walking. REVIEW OF SYSTEMS: CONSTITUTIONAL: No night sweats. No fatigue, malaise, lethargy. No fever or chills. HEENT: Eyes: No visual changes. No eye pain. No eye discharge. ENT: No runny nose. No epistaxis. No sinus pain. No odynophagia. No congestion. RESPIRATORY: No cough, no congestion. No hemoptysis. No shortness of breath. CARDIOVASCULAR: No angina symptoms. No CHF symptoms. No atypical chest pain for CAD. No palpitations. No orthopnea.. GASTROINTESTINAL: No abdominal pain. No nausea or vomiting. No diarrhea or constipation. No hematemesis. No hematochezia. GENITOURINARY: No urgency. No frequency. No dysuria. No hematuria. No obstructive symptoms. No discharge. No pain. No significant abnormal bleeding. MUSCULOSKELETAL: Chronic back pain. NEUROLOGICAL: Awake, alert, oriented to time, place and person. No headache. No neck pain. No syncope. No seizures. No dizziness. PSYCHIATRIC: Not anxious. No depression. No suicidal thoughts. No homicidal thoughts. SKIN: No rash. No lesions. No wounds. ENDOCRINE: No unexplained weight loss. No weight gain. HEMATOLOGIC/LYMPHATIC: No anemia. No purpura. No petechiae. No prolonged or excessive bleeding. No palpable lymph nodes. PHYSICAL EXAMINATION: GENERAL: The patient is awake, alert and oriented, lying/sitting in bed in no distress. VITAL SIGNS: Temperature 98.2 F, Pulse 60, Respiratory Rate 18, BP 124/67, Pulse Ox 97% HEENT: Head normocephalic, atraumatic. Eyes: Extraocular muscles are intact. Pupils are equal, round and reactive to light and accommodation. Ears: No lesions. Nose appeared normal. Throat: No exudate or erythema. NECK: Supple. No JVD, no carotid bruit. No lymphadenopathy or thyromegaly. LUNGS: Diminished breath sounds. Clear to auscultation. Percussion note normal. Chest symmetrical. HEART: S1, S2, no S3. No murmurs. No cyanosis or clubbing. No ascites. Pulses: Dorsalis pedis and posterior tibial pulses +1 to +2 both sides. ABDOMEN: Soft. Non-tender. Bowel sounds active. No CVA tenderness. No mass felt. EXTREMITIES: No edema. Full range of motion of all extremities, equal. NEUROLOGIC: No focal deficit. Cranial nerves II through XII are grossly intact. No headache, no double vision or headache. SKIN: Not dry. Intact. Turgor-normal. LYMPHATIC: No palpable lymph nodes/no lymphedema. MUSCULOSKELETAL: Normal joints with no swelling. Muscle tone is normal. LAB REVIEW: 09/03/17 04:15 09/03/17 04:15 09/03/17 04:15: Sodium 129 L, Potassium 4.1, Chloride 101, Carbon Dioxide 22 L, Anion Gap 10.1, BUN 14, Creatinine 0.80, Estimated GFR (MDRD) 70.00, BUN/ Creatinine Ratio 17.50, Glucose 125 H, Calcium 8.6, Total Bilirubin 0.5, AST 16 , ALT 16, Alkaline Phosphatase 47 L, Total Protein 5.6 L, Albumin 2.6 L, Globulin 3.0, Albumin/Globulin Ratio 0.87 09/03/17 04:15: WBC 12.35 H, RBC 4.04 L, Hgb 12.6, Hct 36.0 L, MCV 89.1, MCH 31.2 H, MCHC 35.0, RDW Coeff of Gerry 12.5, Plt Count 206, Immature Gran % (Auto) 0.4, Neut % (Auto) 73.6, Lymph % (Auto) 16.4, [place] % (Auto) 7.8, Eos % (Auto) 1.4, Baso % (Auto) 0.4, Immature Gran # (Auto) 0.1, Neut # (Auto) 9.1 H, Lymph # (Auto) 2.0, [place] # (Auto) 1.0, Eos # (Auto) 0.2, Baso # (Auto) 0.1 ASSESSMENT: 1. GERD 2. RIGHT LOWER BACK PAIN 3. RIGHT SCIATICA 4. MICROSCOPIC HEMATURIA 5. ATRIAL FIBRILLATION 6. HYPERTENSION 7. HYPONATREMIA PLAN: 1. Discharge home 2. Increase Ultram to twice a day q.8hr #60 3. Will discuss referral to [facility] for followup appointment 4. Limit fluid intake 5. Increase sodium Plan and coordination of the patient's care discussed in the presence of Riddler Operator and nurse. CONDITION: Stable SCRIBED BY: STEFANI FALK Addiction Professional scribed while in presence of service performed by Dr. Nichols/Roxanne Means APRN on 09/03/17 ([id number])
--- NOTE | 2017-09-03 15:22 | PN ---
DATE OF SERVICE: 09/02/17 SUBJECTIVE: The patient was seen with the Nurse Practitioner. The patient's condition is stable. The patient still feels weak and tired. The patient explained about hematuria and differential diagnosis. The rest of the physical exam is negative. The patient may need echocardiogram to evaluate LV function as the patient is fatigued and tired. CONDITION: Stable. TIME SPENT: More than 30 minutes. Plan and coordination of the patient's care discussed in the presence of nurse. DUKE
--- NOTE | 2017-09-03 15:30 | PN ---
DATE OF SERVICE: 09/01/17 SUBJECTIVE: The patient's right flank pain seems to be somewhat better. She feels tired. We will check her urine. She has hematuria but she is going to need further investigation. REVIEW OF SYSTEMS: CONSTITUTIONAL: No night sweats. Fatigue. No fever or chills. Weakness. HEENT: Eyes: No visual changes. No eye pain. No eye discharge. ENT: No runny nose. No epistaxis. No sinus pain. No sore throat. No odynophagia. No congestion. RESPIRATORY: No cough, no congestion. No hemoptysis. No shortness of breath. CARDIOVASCULAR: No angina symptoms. No CHF symptoms. No atypical chest pain for CAD. No palpitations. No orthopnea. GASTROINTESTINAL: Mild right flank pain. No nausea or vomiting. No diarrhea or constipation. No hematemesis. No hematochezia. GENITOURINARY: No urgency. No frequency. No dysuria. No hematuria. No obstructive symptoms. No discharge. No pain. No significant abnormal bleeding. MUSCULOSKELETAL: No musculoskeletal pain; no joint swelling. NEUROLOGICAL: No headache. No neck pain. No syncope. No seizures. No dizziness. PSYCHIATRIC: Not anxious. No depression. No suicidal thoughts. No homicidal thoughts. SKIN: No rash. No lesions. No wounds. ENDOCRINE: No unexplained weight loss. No weight gain. HEMATOLOGIC/LYMPHATIC: No anemia. No purpura. No petechiae. No prolonged or excessive bleeding. No palpable lymph nodes. PHYSICAL EXAMINATION: GENERAL: The patient is oriented to time, place and person. HEENT: Head normocephalic, atraumatic. Eyes: Extraocular muscles are intact. Pupils are equal, round and reactive to light and accommodation. Ears: No lesions. Nose appeared normal. Throat: No exudate or erythema. NECK: Supple. No JVD, no carotid bruit. No lymphadenopathy or thyromegaly. LUNGS: Clear to auscultation. Percussion note normal. Chest symmetrical. HEART: S1, S2, no S3. No murmurs. No cyanosis or clubbing. No ascites. Pulses: Dorsalis pedis and posterior tibial pulses +1 to +2 both sides. ABDOMEN: Soft. Nontender. Bowel sounds active. No CVA tenderness. No mass felt. EXTREMITIES: No edema. Full range of motion of all extremities, equal. NEUROLOGIC: No focal deficit. Cranial nerves II through XII are grossly intact. No headache, no double vision or headache. SKIN: Not dry. Intact. Turgor - normal. LYMPHATIC: No palpable lymph nodes/no lymphedema. MUSCULOSKELETAL: Normal joints with no swelling. Muscle tone is normal. CONDITION: Stable. PLAN: 1. Will continue to monitor Hematuria TIME SPENT: More than 30 minutes. Plan and coordination of the patient's care discussed in the presence of nurse. DUKE
--- NOTE | 2017-09-04 11:24 | DS ---
DATE OF SERVICE: 09/03/17 FINAL DIAGNOSIS: 1. Right sciatica, acute 2. right renal colic 3. Hematuria 4. Atrial fibrillation (on Eliquis) 5. Hypertension 6. COPD 7. DJD lumbar spine 8. Chronic pain syndrome 9. Dyslipidemia 10.Osteoporosis 11.Hyponatremia 12.Appendectomy 13.Oophorectomy, right 14.History of ablation of nerves in the back (Dr. Sanford) LAST VITALS: Temperature 98.2, pulse 60, respiratory rate 18, blood pressure 124/67 and pulse ox 97%. DISCHARGE INSTRUCTIONS: Discharge home. An appointment is scheduled with Dr. Whatley on September 04 at 10am. An appointment is scheduled with /Roxanne Means APRN on September 09 at 12 noon. Full code status requested by the patient. MEDICATIONS AT DISCHARGE: Eliquis 5mg PO twice a day Vitamin D 2,000 unit PO daily Klonopin 0.5mg PO twice a day Zestril 10mg PO daily Lopressor 25mg PO twice a day Zocor 20mg PO bedtime Ultram 50mg PO twice a day PRN Prolia 60mg SQ as directed ALLERGIES: Iodinated Contrast Iodine and Iodide containing Product Sulfa NEW PRESCRIPTIONS: Ultram 50mg take one twice a day as needed for pain Lisinopril 10mg take one daily (not a new RX) DIET INSTRUCTIONS: Regular as tolerated ACTIVITY: Gradually resume as tolerated. Avoid lifting, pushing and pulling. SMOKING: Advised to stop smoking DISEASE SPECIFIC EDUCATION: Medications Appointments Activity Hyponatremia HOSPITAL COURSE: This is a 72 year old white female who presented to our office with acute back pain, acute right flank pain. She stated that it had gradually worsened over the past 24-48 hours. She did feel that had some urinary pressure. A urine was done in out office showing 3+ blood however was otherwise normal. She was admitted with right renal colic, acute right sciatica and hematuria. CT renal stone protocol was negative for stone. She was placed on Toradol 30mg IV Q 6 hours, given 1cc of Decadron in our office and then given another cc of Decadron 4mg the second day. With this her pain did significantly improve. CT of the L spine shows she does have degenerative disc disease of the Lumbar spine which is chronic for her however the scan were unchanged from previous. Her blood pressure remained under control while she was in the hospital. Yesterday she experienced some nausea and abdominal pain. We gave her some Zofran 4mg PO as well as Protonix 40mg PO and this resolved. This morning she has been eating well. She has been up and about walking in her room. On admission she was unable to bare weight on the right side and was limping. She states her pain was significantly resolved. Repeat urine in the hospital on the second day showed 2+ blood and then we are now down to 1+ blood on discharge however we will refer to urology to followup with hematuria. She has an appointment with Dr. Moise in [place] on Saturday and we will followup with her later in the office. She is discharged in stable condition. TIME SPENT: More than 60 minutes. DUKE
--- NOTE | 2017-09-04 15:24 | PN ---
DATE OF SERVICE: 08/31/17 SUBJECTIVE: 72 year old white female hospitalized with right flank pain which has improved. CT scan was negative for renal stone. U/A still showed blood. She may need workup for hematuria. The patient's CT scan of the L spine showed DJD spine. REVIEW OF SYSTEMS: CONSTITUTIONAL: No night sweats. No fatigue, malaise, lethargy. No fever or chills. HEENT: Eyes: No visual changes. No eye pain. No eye discharge. ENT: No runny nose. No epistaxis. No sinus pain. No sore throat. No odynophagia. No congestion. RESPIRATORY: No cough, no congestion. No hemoptysis. No shortness of breath. CARDIOVASCULAR: No angina symptoms. No CHF symptoms. No atypical chest pain for CAD. No palpitations. No orthopnea. GASTROINTESTINAL: No abdominal pain. No nausea or vomiting. No diarrhea or constipation. No hematemesis. No hematochezia. GENITOURINARY: No urgency. No frequency. No dysuria. No hematuria. No obstructive symptoms. No discharge. No pain. No significant abnormal bleeding. MUSCULOSKELETAL: No musculoskeletal pain; no joint swelling. Lower back pain. NEUROLOGICAL: No headache. No neck pain. No syncope. No seizures. No dizziness. PSYCHIATRIC: Not anxious. No depression. No suicidal thoughts. No homicidal thoughts. SKIN: No rash. No lesions. No wounds. ENDOCRINE: No unexplained weight loss. No weight gain. HEMATOLOGIC/LYMPHATIC: No anemia. No purpura. No petechiae. No prolonged or excessive bleeding. No palpable lymph nodes. PHYSICAL EXAMINATION: GENERAL: The patient is oriented to time, place and person. VITAL SIGNS: Temperature 97.7, pulse 50, respiratory rate 18, blood pressure 146/66 and pulse ox 99%. HEENT: Head normocephalic, atraumatic. Eyes: Extraocular muscles are intact. Pupils are equal, round and reactive to light and accommodation. Ears: No lesions. Nose appeared normal. Throat: No exudate or erythema. NECK: Supple. No JVD, no carotid bruit. No lymphadenopathy or thyromegaly. LUNGS: Decreased breath sounds but clear to auscultation. Percussion note normal. Chest symmetrical. HEART: S1, S2, no S3. No murmurs. No cyanosis or clubbing. No ascites. Pulses: Dorsalis pedis and posterior tibial pulses +1 to +2 both sides. ABDOMEN: Soft. Nontender. Bowel sounds active. No CVA tenderness. No mass felt. EXTREMITIES: No edema. Full range of motion of all extremities, equal. NEUROLOGIC: No focal deficit. Cranial nerves II through XII are grossly intact. No headache, no double vision or headache. SKIN: Not dry. Intact. Turgor - normal. LYMPHATIC: No palpable lymph nodes/no lymphedema. MUSCULOSKELETAL: Normal joints with no swelling. Muscle tone is normal. LABS: Hgb 13, hct 37, WBC 11,000 normal differential, creatinine 0.7, BUN 14, potassium 4 ASSESSMENT: 1. Right flank pain seems to be resolving 2. Hematuria of unknown etiology 3. Lower back pain, sciatica likely from radiculopathy PLAN: 1. Continue Dilaudid 2. Toradol 3. Continue all the rest of the medication including Lisinopril and Metoprolol , Nitroglycerin and Simvastatin. CONDITION: Stable CARDIOVASCULAR STATUS: Stable TIME SPENT: More than 30 minutes. Plan and coordination of the patient's care discussed in the presence of nurse. DUKE
--- NOTE | 2017-09-05 09:34 | PN ---
DATE OF SERVICE: 09/03/17 SUBJECTIVE: The patient was seen and examined with the nurse practitioner. The patient's condition has improved. She is up and about. The pain is much less, still has + 1 blood. Will refer her to urologist and is to be seen tomorrow by Dr. Whatley. Her cardiovascular status is stable. Back pain is under control. TIME SPENT: More than 30 minutes. Plan and coordination of the patient's care discussed in the presence of nurse. DUKE
--- NOTE | 2017-09-05 09:36 | PN ---
CODING FOR BILLING 08/29/17 ADMISSION DAY LEVEL 5 08/30/17 INTERMEDIATE 08/31/17 INTERMEDIATE 09/01/17 INTERMEDIATE 09/02/17 INTERMEDIATE 09/03/17 DISCHARGE MTDD
== END 2017-09-03 12:49 | disposition home or self-care (01) | DRG 694 ==
LOC: MEDSURG A 12:53
PROVIDERS: ADMIT Internal Medicine; ATTEND Internal Medicine
DX: N23 Unspecified renal colic (principal); E87.1 Hypo-osmolality and hyponatremia; R31.9 Hematuria, unspecified; R10.9 Unspecified abdominal pain; J44.9 Chronic obstructive pulmonary disease, unspecified; G89.4 Chronic pain syndrome; F41.1 Generalized anxiety disorder; K21.9 Gastro-esophageal reflux disease without esophagitis; E78.5 Hyperlipidemia, unspecified; I10 Essential (primary) hypertension; I48.91 Unspecified atrial fibrillation; M47.9 Spondylosis, unspecified; M81.0 Age-related osteoporosis without current pathological fracture; M54.9 Dorsalgia, unspecified; Z91.19 Patient's noncompliance with other medical treatment and regimen; Z79.01 Long term (current) use of anticoagulants
CPT/HCPCS: 36415; 74176; 80053; 81001; 85025; 93005; 93010

== ENCOUNTER 2017-11-21 11:58 | Outpatient (CLI) | payer OTHER ==
[2015-02-02 09:24] VITALS: BMI 22.4
[2017-11-21 12:08] VITALS: BP 118/63; TEMP 98.2
[2017-11-21] MEDS ORDERED: PROLIA SUBCUT STA (12:09)
== END 2017-11-21 11:59 | disposition home or self-care (01) ==
LOC: OPMED 11:58
PROVIDERS: ATTEND Internal Medicine
DX: M81.0 Age-related osteoporosis without current pathological fracture (principal)
CPT/HCPCS: 96372

== ENCOUNTER 2018-01-07 13:59 | Outpatient (CLI) | payer OTHER ==
[2015-02-02 09:24] VITALS: BMI 22.4
--- NOTE | 2018-01-07 14:42 | CT ---
EXAM: CT of the chest without contrast History: Chest pain and back pain. Comparison: Chest CT 02/02/2015 Technique: Multiplanar CT images through the chest were obtained without the administration of IV co ntrast Findings: Heart size is upper limits of normal. No pericardial effusion. Coronary calcifications. No thoracic aortic aneurysm. No pathologically enlarged thoracic lymph nodes. No consolidation. B iapical lung scarring. No pleural fluid and no pneumothorax. No suspicious lung masses or lung nodu les. Within the visualized upper abdomen, no acute findings. Gastric fundal diverticulum again noted. No acute osseous abnormalities. Impression: 1. No acute intrathoracic process. 2. Coronary artery disease
== END 2018-01-07 14:00 | disposition home or self-care (01) ==
LOC: RAD 13:59
PROVIDERS: ATTEND Internal Medicine
DX: M54.9 Dorsalgia, unspecified (principal)

== ENCOUNTER 2018-05-29 14:10 | Outpatient (CLI) ==
[2015-02-02 09:24] VITALS: BMI 22.4
[2018-05-29 14:29] VITALS: BP 172/90; TEMP 97.2
[2018-05-29] MEDS ORDERED: PROLIA SUBCUT STA (14:32)
== END 2018-05-29 14:11 | disposition home or self-care (01) ==
LOC: OPMED 14:10
PROVIDERS: ATTEND Internal Medicine
DX: M81.0 Age-related osteoporosis without current pathological fracture (principal)
CPT/HCPCS: 96372

== ENCOUNTER 2018-07-07 08:34 | Outpatient (CLI) ==
[2015-02-02 09:24] VITALS: BMI 22.4
--- NOTE | 2018-07-07 09:29 | US ---
EXAM: Right upper quadrant abdominal ultrasound. History: Right upper quadrant abdominal pain. Comparison: Abdominal ultrasound 01/17/2015 Technique: Multiple sonographic images through the abdomen were obtained. Color duplex Doppler was used to interrogate vascular flow. Findings: The liver is not enlarged. No focal liver lesions identified sonographically. The visualized pancre as demonstrates no gross abnormality. No abdominal ascites. Limited visualization of the right kidn ey demonstrates no evidence for hydronephrosis. There is antegrade flow within the main portal vein. No shadowing gallstones. Gallbladder wall is not thickened. Common bile duct measures 0.3 cm in c aliber. Impression: Unremarkable exam.
--- NOTE | 2018-07-07 09:32 | DI ---
EXAM: Two views of the chest. History: Cough. Comparison: Chest radiograph 08/29/2017 Findings: Heart size is normal. No focal consolidation. No appreciable pleural fluid and no pneumo thorax. Atherosclerotic vascular calcifications. No acute osseous abnormalities. Impression: No acute cardiopulmonary process
== END 2018-07-07 08:35 | disposition home or self-care (01) ==
LOC: RAD 08:34
PROVIDERS: ATTEND Internal Medicine
DX: R10.11 Right upper quadrant pain (principal); R05 Cough

== ENCOUNTER 2018-07-15 08:43 | Outpatient (CLI) ==
[2015-02-02 09:24] VITALS: BMI 22.4
--- NOTE | 2018-07-15 11:09 | NM ---
Exam: Hepatobiliary scintigraphy with gallbladder ejection fraction Date of exam: 07/15/2018 Radiopharmaceutical: 5.0 mCi Tc-99m mebrofenin i.v. and 2.0 mcg Kinevac i.v. HISTORY: Abdominal pain right upper quadrant FINDINGS: Following intravenous administration of technetium-99m mebrofenin, sequential abdominal im ages were obtained. There is prompt and uniform accumulation of the radiotracer by the liver. There is normal filling of the intrahepatic ducts, common bile duct, and gallbladder. There is normal exc retion of radiotracer into the duodenum. In order to evaluate the contracted oral response of the gallbladder to cholecystokinin, sincalide wa s administered by slow intravenous infusion over 30 minutes. Sequential imaging was continued after the start of sincalide infusion. These images demonstrate good contraction of the gallbladder. The calculated gallbladder ejection fraction is 73%. In normal subjects, the lower limit of normal gallbladder ejection fraction is 35%. Impression: 1. Normal contractile response of the gallbladder to sincalide infusion 2. Normal biliary imaging study.
== END 2018-07-15 08:44 | disposition home or self-care (01) ==
LOC: RAD 08:43
PROVIDERS: ATTEND Internal Medicine
DX: R10.11 Right upper quadrant pain (principal)

== ENCOUNTER 2023-11-22 18:44 | Observation (INO) ==
--- NOTE | 2023-11-22 19:08 | ED.PDOC ---
General ED Provider: Dr. DEIDRE GILL MD Chief Complaint: Syncope Stated Complaint: 78 yo WF seen in this ER a few hours ago for elevated BP after stopping her losartan/HCT for a couple of day and her BP in the ER was 211/97 and dropped to 154 systolic prior to DC. After leaving the ER, she and her daughter went to eat dinner at a [employer] restaurant and after leaving didn't felt right and complains of pre-syncopal sx. At home, she check her BP and it was 67/54 and clammy per daughter. She passed out and was unresponsive for 4 minutes total. No witnessed seizure. She did have some chest pain, described as "indigestion" that has resolved. No associated SOB but ? palpitation. She was given 0.2 mg of clonidine in the ER around 3 PM. She had neg Cardidolyte stress test on Oct [address] scan of chest on Nov 18. Previous syncope 2 years ago. Hx of COPD, pre-diabetes, HTN, lipids, anxiety, and chronic back pain. Still smokes 1/3-1/2 PPD. Strong family history of UT and CAD Time Seen by Provider: 11/22/23 18:54 Mode of Arrival: Ambulance Information Source: Patient Exam Limitations: No limitations Primary Care Provider: TAWANNA PATEL MD Referred to ED by: Other (self) Seen Within Last 72 Hours for Same Complaint By: ED Nursing and Triage Documentation Reviewed and Agree: Yes Does Patient Take Opioids?: Yes What is Opioid Naive?: *Opioid Naive implies the patient is not already taking opioids or not chronically receiving opioids on a daily basis. *PRN dosing is not "usually" associated with tolerance. *Patients are at higher risk of over-sedation and aspiration. What is Opioid Tolerant?: *Opioid Tolerance implies less than the expected response to an opioid. *Acquired tolerance is defined by the patient taking 60mg of oral morphine daily (or equianalgesic dose of another opioid) for 1 week or more. *Often associated with chronic pain. *May take more than usual dose to achieve desired pain control. Review of Systems Review Of Systems Constitutional: Reports Sweats; Denies Chills, Fever, Malaise or Weakness Eyes: Reports No symptoms Ears, Nose, Mouth, Throat: Reports No symptoms Respiratory: Reports No symptoms Cardiac: Reports Chest pain and Syncope GI: Denies Abdominal pain, Diarrhea or Vomiting : Reports No symptoms Musculoskeletal: Reports Back pain Skin: Reports No symptoms Neurological: Reports Headache (chronic mild and unchanged) [facility] Medical History SARS-CoV-2 positive 05/2021 Paxlovid U07.1 - COVID-19 (ICD-10) COPD (chronic obstructive pulmonary disease) J44.9 - Chronic obstructive pulmonary disease, unspecified (ICD-10) Mitral valve prolapse I34.1 - Nonrheumatic mitral (valve) prolapse (ICD-10) Cardiac LV ejection fraction >40% 70% R94.30 - Abnormal result of cardiovascular function study, unspecified (ICD- 10) Pneumonia J18.9 - Pneumonia, unspecified organism (ICD-10) Herniated cervical disc M50.20 - Other cervical disc displacement, unspecified cervical region (ICD- 10) Arthritis M19.90 - Unspecified osteoarthritis, unspecified site (ICD-10) Family History Grandfather/Grandmother Diabetes Cardiac disease Mother Cardiac disease FATHER Family history of liver disease CA BROTHER Diabetes Requires insulin Social History Smoking and tobacco status: Current every day smoker Tobacco: How many years used: 40 Quit status: has quit before Alcohol intake: never Substance use type: does not use Special carrie needs: No Agree to transfusion: Yes Adopted: No Caregiver/support person: No Foster care: No Household members: none Housing: house Marital status: D Lives independently: Yes Daycare: no daycare Number of children: 2 service: No skilled nursing: No Current occupational status: retired History of recent travel: No Do you think of yourself as: straight/heterosexual Current gender identity: female Seatbelt use: always Drives intoxicated or rides with intoxicated furniture mover driver: No Water heater temperature set < 120 degrees: Yes Working smoke detector in home: Yes Fire extinguisher in home: No Carbon monoxide detector in home: No Surgical History History of musculoskeletal system surgery "back surgery" Z98.890 - Other specified postprocedural states (ICD-10) History of oophorectomy right ovary removed Status post appendectomy Z90.49 - Acquired absence of other specified parts of digestive tract (ICD- 10) Female Reproductive History Menstrual Hx Hysterectomy: No Hx Tubal Ligation: Yes Physical Exam Physical Exam Appearance: Reports Well-appearing, No pain distress and Well-nourished Ill-appearing: None Pain Distress: None Eyes: Reports LUIS and EOMI ENT: Reports Nose normal and Oropharynx normal Neck: Supple Respiratory: Reports Airway patent, Breath sounds clear, Breath sounds equal, Breath sounds diminished and Respirations nonlabored Cardiovascular: Reports RRR, Pulses normal, No rub and No murmur GI/: Reports Soft, No masses, Bowel sounds normal and No Organomegaly Musculoskeletal: Reports Normal strength, ROM intact and No calf tenderness Skin: Reports Warm and Normal color Neurological: Reports Sensation intact and Motor intact Psychiatric: Reports Affect appropriate and Mood appropriate Interpretation EKG Interpretation EKG Interpretation By: ED Physician Time of EKG #1: 18:51 Rate: Normal Rhythm: Sinus Ectopy: None [place]: NL ST Segment: Normal Interpretation: NSR, abnormal R wave progression, Normal axis, possible LAE, Abnormal EK Physician Notification Case Discussed Physician Notified: Time of Notification: 20:37 Comments: agreed with [facility] admit Physician Notified: Basilia Guillaume Time of Notification: 20:37 Comments: OK admitting to [facility] Course Course 11/22/23 19:13 11/22/23 19:13 Orders, Labs, Meds: Lab Review 11/22/23 19:13 WBC 6.18 RBC 4.10 L Hgb 13.1 Hct 40.0 MCV 97.6 MCH 32.0 H MCHC 32.8 RDW Coeff of Gerry 12.9 Plt Count 144 Immature Gran % (Auto) 0.2 Neut % (Auto) 52.3 Lymph % (Auto) 37.4 [place] % (Auto) 8.3 Eos % (Auto) 1.5 Baso % (Auto) 0.3 Neut # (Auto) 3.2 Lymph # (Auto) 2.3 [place] # (Auto) 0.5 Eos # (Auto) 0.1 Baso # (Auto) 0.0 Immature Gran # (Auto) 0.0 Sodium 131.2 L Potassium 3.55 Chloride 97.5 L Carbon Dioxide 26.1 Anion Gap 11.15 BUN 12.6 Creatinine 0.83 Estimated GFR (MDRD) 66.00 BUN/Creatinine Ratio 15.18 Glucose 178.2 H Calcium 8.38 L Total Bilirubin 0.67 AST 27.6 ALT 17.0 Alkaline Phosphatase 56.2 Troponin I < 0.012 Total Protein 6.05 L Albumin 3.68 Globulin 2.37 Albumin/Globulin Ratio 1.55 D-Dimer 250.83 Orders Category Date Time Status EKG-(ED ONLY) Stat CARDIO 11/22/23 19:04 Completed Saline Lock [ED IV/MEDIPORT/POWERPORT] .ONCE EMERGENCY 11/22/23 19:02 Active CBC W/ AUTO DIFF Stat LAB 11/22/23 19:13 Completed CMP [COMPREHENSIVE METABOLIC PANEL] Stat LAB 11/22/23 19:13 Completed COVID [SARS COV-2 RNA RAPID LIONEL] Stat LAB 11/22/23 Uncollected D-DIMER Stat LAB 11/22/23 19:13 Completed TROPONIN I Stat LAB 11/22/23 19:13 Completed TROPONIN I Stat LAB 11/22/23 20:36 Ordered 0.9 % Sodium Chloride [Saline Flush] Meds 11/22/23 19:02 Active 1 syr IVF PRN PRN Pantoprazole Sodium [Protonix] Meds 11/22/23 19:05 Discontinued 40 mg IVP ONCE ONE CHEST, 1V AP ONLY Stat RADS 11/22/23 19:[address] HEAD W/O CONTRAST Stat RADS 11/22/23 19:02 Completed Medications Generic Name Dose Route Start Last Admin Trade Name Freq PRN Reason Stop Dose Admin Sodium Chloride 1 syr 11/22/23 19:02 11/22/23 19:12 0.9% Sodium Chloride 10 Ml Disp.Syrin IVF 1 syr PRN PRN Administration To flush IV Discontinued Medications Generic Name Dose Route Start Last Admin Trade Name Freq PRN Reason Stop Dose Admin Pantoprazole Sodium 40 mg 11/22/23 19:05 11/22/23 19:11 Pantoprazole Sodium 40 Mg Vial IVP 11/22/23 19:06 40 mg ONCE ONE Administration Vital Signs: Temp Pulse Resp BP Pulse Ox 11/22/23 19:36 67 16 117/55 L 96 11/22/23 18:44 98.2 F 66 20 143/65 H 99 ADRIENNE Risk Score ADRIENNE Risk Score: Risk Score Odds of by 30D 0 0.1 (0.1-0.2) 1 0.3 (0.2-0.3) 2 0.4 (0.3-0.5) 3 0.7 (0.6-0.9) 4 1.2 (1.0-1.5) 5 2.2 (1.9-2.6) 6 3.0 (2.5-3.6) 7 4.8 (3.8-6.1) Physician Progress Note: Discussed that her primary physician prefers she be admitted to OBS. She is reluctant and prefers to go home but will comply Discharge Plan Discharge Patient Disposition: PLACED OBSERVATION Discharge Problem: Syncope and collapse Prescriptions: No Action (DME) OneTouch Ultra Test Strip See Rx Instructions .ROUTE .COMPLEX Qty: 100 5RF Dose Instruction: DIRECTED E11.9 Rx Instructions: DIRECTED E11.9 TEST DAILY (DME) Contour Next Test Strips Strip See Rx Instructions .ROUTE Qty: 100 5RF Rx Instructions: As directed E11.9 TEST DAILY (DME) lancets [OneTouch Delica Plus Lancet] 30 gauge misc See Rx Instructions .ROUTE .COMPLEX Qty: 100 5RF Dose Instruction: DIRECTED E11.9 Rx Instructions: DIRECTED E11.9 TEST DAILY metoprolol tartrate 25 mg tablet See Rx Instructions .ROUTE .COMPLEX Qty: 60 2RF Dose Instruction: TAKE ONE TABLET TWICE DAILY Rx Instructions: TAKE ONE TABLET TWICE DAILY rosuvastatin 20 mg tablet See Rx Instructions .ROUTE .COMPLEX Qty: 90 1RF Dose Instruction: TAKE ONE TABLET DAILY GENERIC FOR CRESTOR Rx Instructions: TAKE ONE TABLET DAILY GENERIC FOR CRESTOR clonazepam 0.5 mg tablet 0.5 mg PO BID PRN (Reason: anxiety) Qty: 60 2RF tramadol 50 mg tablet 50 mg PO BID PRN (Reason: Moderate Pain) Qty: 60 2RF Eliquis 5 mg tablet See Rx Instructions .ROUTE .COMPLEX Qty: 60 2RF Dose Instruction: TAKE ONE TABLET TWICE DAILY Rx Instructions: TAKE ONE TABLET TWICE DAILY losartan-hydrochlorothiazide 100-12.5 mg tablet 1 tab PO QDAY Qty: 90 1RF Trelegy Ellipta 200-62.5-25 mcg blister with device 1 inh inhalation QDAY Qty: 60 4RF pantoprazole [Protonix] 40 mg tablet,delayed release (DR/EC) 40 mg PO QDAY Qty: 30 2RF prednisone 50 mg tablet 50 mg PO ONCE Qty: 3 0RF Rx Instructions: 13hr prior to test, 7 hr prior to test, 1 hr prior to test Did you review [place] PHARMACIST APPRENTICE for ALL controlled substances?: Not Applicable ED Provider: DEIDRE GILL
[2023-11-22] MEDS: PROTONIX IVP ONE (19:11)
[2023-11-22 19:33] LABS: BASOPHILS % (AUTO) 0.3 % (0.0-3.0); EOSINOPHILS # (AUTO) 0.1 K/ul (0.0-0.7); EOSINOPHILS % (AUTO) 1.5 % (0.0-7.0); HEMOGLOBIN 13.1 g/dl (12.0-16.0); IMMATURE GRANULOCYTE % (AUTO) 0.2 % (0.0-5.0); LYMPHOCYTES # (AUTO) 2.3 K/uL (0.60-3.4); LYMPHOCYTES % (AUTO) 37.4 (10.0-50.0); MEAN CORPUSCULAR HGB CONC 32.8 (31.8-35.4); MEAN CORPUSCULAR VOLUME 97.6 fl (81.0-99.0); MONOCYTES # (AUTO) 0.5 K/uL (0.4-2.0); MONOCYTES % (AUTO) 8.3 (0-10); NEUTROPHILS # (AUTO) 3.2 K/ul (2.0-6.9); NEUTROPHILS % (AUTO) 52.3 % (42.2-75.2); PLATELET COUNT 144 10^3/uL (140-440); RDW COEFFICIENT OF VARIATION 12.9 % (11.6-14.8); WHITE BLOOD COUNT 6.18 K/ul (4.6-10.2)
[2023-11-22 19:35] LABS: ALBUMIN 3.68 g/dL (3.5-5.0); ALKALINE PHOSPHATASE 56.2 U/L (53-141); ASPARTATE AMINO TRANSFERASE 27.6 U/L (14-36); BILIRUBIN,TOTAL 0.67 mg/dL (0.2-1.3); BLOOD UREA NITROGEN 12.6 mg/dL (7-17); CALCIUM 8.38 mg/dL (8.4-10.2); CARBON DIOXIDE 26.1 mmol/L (22-30.0); CHLORIDE 97.5 mmol/L (98-107); CREATININE 0.83 mg/dL (0.60-1.30); GLUCOSE 178.2 mg/dL (74-106); POTASSIUM 3.55 mmol/L (3.5-5.1); SODIUM 131.2 mmol/L (134.5-145); TOTAL PROTEIN 6.05 g/dL (6.3-8.2)
[2023-11-22 19:46] LABS: TROPONIN I < 0.012 ng/ml (0.0000-0.120)
--- NOTE | 2023-11-22 20:20 | CT ---
EXAM: CT HEAD WITHOUT CONTRAST HISTORY: Syncope COMPARISON: CT head from 12/07/2021 TECHNIQUE: Multi-slice transaxial images are acquired through the head with 2-D reconstructed images . All CT scans are performed using dose optimization techniques as appropriate to the performed exam and includes at least one of the following: Automated exposure control, adjustment of the mA and/or kV according to size, and the use of iterative reconstruction technique. FINDINGS: The midline structures are central. The ventricles are neither dilated nor displaced. Th e sulci are prominent at the convexities. The brain attenuation has a normal jenkins-white matter inter face. There is low attenuation in the periventricular white matter. No acute intraparenchymal or ext raaxial hemorrhage. The calvarium is intact. The paranasal sinuses and mastoid air cells are clear in their visualized portions. IMPRESSION: 1. No acute intracranial process. 2. Small vessel disease and age related involution. . All CT scans are performed using dose optimization techniques as appropriate to the performed exam an d include at least one of the following: Automated exposure control, adjustment of the mA and/or kV according t o size, and the use of iterative reconstruction technique.
[2023-11-22] MEDS ORDERED: SODIUM CHLORIDE 0.9%-KCL 20 MEQ 1,000 ML IV ONE (20:42)
--- NOTE | 2023-11-22 20:43 | DI ---
EXAM: CHEST RADIOGRAPH TECHNIQUE: Single frontal chest radiograph. HISTORY: Syncope. COMPARISON: 10/22/2023 FINDINGS: Lungs show no consolidation, pleural effusion or pneumothorax. Underlying chronic interstitial marie es. The cardiomediastinal silhouette and pulmonary vessels are within normal limits. Upper abdomen is unremarkable. No acute bony abnormality. Mild rightward convexity of the thoracic spine. IMPRESSION: 1. No acute cardiopulmonary disease.
[2023-11-22 20:54] LABS: SARS COV-2 RNA RAPID NAAT NEGATIVE (NEGATIVE)
[2023-11-22] MEDS ORDERED: ZOFRAN 4 MG/2 ML IVP SCH (21:00)
[2023-11-22] MEDS ORDERED: LOPRESSOR PO SCH (21:00)
[2023-11-22] MEDS ORDERED: TYLENOL PO PRN (21:11)
[2023-11-22] MEDS ORDERED: ZOFRAN 4 MG/2 ML IVP PRN (21:11)
[2023-11-22] MEDS ORDERED: NON-FORMULARY MEDICATION (Fluticasone-Umeclidin-Vilanter [Trelegy Ellipta] 200-62.5-25 mcg IH SCH (21:15)
[2023-11-22] MEDS ORDERED: NICODERM 14 MG TD SCH (22:20)
[2023-11-22] MEDS: ELIQUIS PO SCH (22:36)
[2023-11-22] MEDS: NICODERM 14 MG TD ONE (22:36)
[2023-11-22] MEDS: SODIUM CHLORIDE 1,000 ML IV SCH (22:36)
[2023-11-22 22:44] VITALS: BMI 22.5
[2023-11-23 05:16] LABS: BASOPHILS % (AUTO) 0.4 % (0.0-3.0); EOSINOPHILS # (AUTO) 0.1 K/ul (0.0-0.7); EOSINOPHILS % (AUTO) 1.4 % (0.0-7.0); HEMATOCRIT 40.7 % (37.0-47.0); HEMOGLOBIN 13.5 g/dl (12.0-16.0); IMMATURE GRANULOCYTE % (AUTO) 0.3 % (0.0-5.0); LYMPHOCYTES # (AUTO) 2.2 K/uL (0.60-3.4); LYMPHOCYTES % (AUTO) 30.1 (10.0-50.0); MEAN CORPUSCULAR HEMOGLOBIN 31.5 pg (27.0-31.0); MEAN CORPUSCULAR HGB CONC 33.2 (31.8-35.4); MEAN CORPUSCULAR VOLUME 95.1 fl (81.0-99.0); MONOCYTES # (AUTO) 0.5 K/uL (0.4-2.0); NEUTROPHILS # (AUTO) 4.4 K/ul (2.0-6.9); NEUTROPHILS % (AUTO) 60.8 % (42.2-75.2); PLATELET COUNT 174 10^3/uL (140-440); RDW COEFFICIENT OF VARIATION 13.2 % (11.6-14.8); RED BLOOD COUNT 4.28 10^6/ul (4.20-5.40); WHITE BLOOD COUNT 7.25 K/ul (4.6-10.2)
[2023-11-23 05:34] LABS: ALANINE AMINOTRANSFERASE 15.9 U/L (0-35); ALBUMIN 3.8 g/dL (3.5-5.0); ALKALINE PHOSPHATASE 63.5 U/L (53-141); ASPARTATE AMINO TRANSFERASE 21.4 U/L (14-36); BILIRUBIN,TOTAL 0.61 mg/dL (0.2-1.3); BLOOD UREA NITROGEN 10.7 mg/dL (7-17); CALCIUM 8.99 mg/dL (8.4-10.2); CHLORIDE 100.5 mmol/L (98-107); CREATININE 0.73 mg/dL (0.60-1.30); GLUCOSE 120.1 mg/dL (74-106); POTASSIUM 3.89 mmol/L (3.5-5.1); SODIUM 134.4 mmol/L (134.5-145); TOTAL PROTEIN 6.29 g/dL (6.3-8.2)
[2023-11-23] MEDS ORDERED: COZAAR PO SCH (09:00)
[2023-11-23] MEDS ORDERED: PROTONIX IVP SCH (09:00)
[2023-11-23] MEDS ORDERED: HYDROCHLOROTHIAZIDE PO SCH (09:00)
[2023-11-23] MEDS: LOPRESSOR PO SCH (09:08)
[2023-11-23] MEDS: CRESTOR PO SCH (09:09)
[2023-11-23] MEDS: ULTRAM PO PRN (09:15)
[2023-11-23] MEDS: SPIRIVA IH SCH (09:19)
[2023-11-23] MEDS: SYMBICORT 160-4.5 MCG INHALER IH SCH (09:20)
[2023-11-23 09:59] VITALS: BP 178/84; PULSE 60; RESP 18; TEMP 98
[2023-11-23] MEDS: COZAAR PO ONE (10:58)
[2023-11-23] MEDS: HYDROCHLOROTHIAZIDE PO SCH (10:58)
[2023-11-23] MEDS: KLONOPIN PO PRN (11:02)
--- NOTE | 2023-11-23 11:56 | PCM.SS ---
Provider Provider[facility] Date Admission Date: 11/22/23 Discharge Date Discharge Date: 11/23/23 Primary Care Physician Primary Care Physician: TAWANNA PATEL MD Chief Complaint Reason For Visit: SYNCOPE & COLLAPSED, HYPERTENSION, CHEST PAIN History of Present Illness History of Present Illness: Admitted 11/22/23 20:57, this 78 year old /WHITE/F with pmhx of hypertension, COPD, a fib, hyperlipidemia, b 12 deficiency, osteoporosis, who had two ER visits. Patient initially presented to the ER for hypertension. Her systolic was over 200. She states that earlier in the week she was to have a CT scan with contrast and had to be pretreated for an allergy with steroids. She had also missed a couple doses of her blood pressure medication. This in turn caused her blood pressure to go up and she has been monitoring it "way too much" at home per the patient. She was given a 0.2 mg clonidine in the ER. Her blood pressure improved and she was discharged to home. She states she then went out to eat with her daughter and initially felt fine but then by time they got home she told her daughter she felt like she was going to pass out and when she stood up she did pass out. Her daughter was able to help get her to the couch. She had passed out for reportedly 4 minutes before she came to. Her blood pressure was noted to be 65 systolic at home on their blood pressure cuff and EMS got in the 80s systolic. She was brought to the ER and given fluids. Her blood pressure has improved. She was admitted for monitoring overnight. Patient's blood pressure pills were then held due to her hypotension. And on the date of discharge her blood pressure is again consistently elevated. her usual home meds were reordered and her blood pressure improved. Discussed with her that she likely needs to just get back on her usual regimen as it normally works well for her but was disrupted this past week. Trops were negative. No arrhythmias on telemetry. She feels well and has been asking to go home since she got admitted last night. Advised her to try to not be obsessive with her blood pressure cuff but to log her blood pressures and take them to her PCP for follow-up this week. Advised to return to the ER with any worsening symptoms patient agrees to plan of care. Of note patient did have a recent cardiac workup with Dr. Camila Patel which was normal. [facility] Medical History SARS-CoV-2 positive 05/2021 Paxlovid U07.1 - COVID-19 (ICD-10) COPD (chronic obstructive pulmonary disease) J44.9 - Chronic obstructive pulmonary disease, unspecified (ICD-10) Mitral valve prolapse I34.1 - Nonrheumatic mitral (valve) prolapse (ICD-10) Cardiac LV ejection fraction >40% 70% R94.30 - Abnormal result of cardiovascular function study, unspecified (ICD- 10) Pneumonia J18.9 - Pneumonia, unspecified organism (ICD-10) Herniated cervical disc M50.20 - Other cervical disc displacement, unspecified cervical region (ICD- 10) Arthritis M19.90 - Unspecified osteoarthritis, unspecified site (ICD-10) Surgical History History of musculoskeletal system surgery "back surgery" Z98.890 - Other specified postprocedural states (ICD-10) History of oophorectomy right ovary removed Status post appendectomy Z90.49 - Acquired absence of other specified parts of digestive tract (ICD- 10) Family History Grandfather/Grandmother Diabetes Cardiac disease Mother Cardiac disease FATHER Family history of liver disease CA BROTHER Diabetes Requires insulin Social History Smoking and tobacco status: Current every day smoker Tobacco: How many years used: 40 Quit status: has quit before Alcohol intake: never Substance use type: does not use Special carrie needs: No Agree to transfusion: Yes Adopted: No Caregiver/support person: No Foster care: No Household members: none Housing: house Marital status: D Lives independently: Yes Daycare: no daycare Number of children: 2 service: No custodial: No Current occupational status: retired History of recent travel: No Do you think of yourself as: straight/heterosexual Current gender identity: female Seatbelt use: always Drives intoxicated or rides with intoxicated stacker driver: No Water heater temperature set < 120 degrees: Yes Working smoke detector in home: Yes Fire extinguisher in home: No Carbon monoxide detector in home: No Medications Mecications: Medications at Discharge (Home Meds & RX) blood sugar diagnostic (Contour Next Test Strips) #100 ea 06/13/23 blood sugar diagnostic (OneTouch Ultra Test strips) #100 ea 06/13/23 lancets 30 gauge (OneTouch Delica Plus Lancet) #100 ea 06/13/23 apixaban 5 mg tablet (Eliquis) See Rx Instructions .Route .COMPLEX #60 tabs 09/05/23 clonazepam 0.5 mg tablet 0.5 mg PO BID PRN anxiety #60 tabs 09/05/23 metoprolol tartrate 25 mg tablet See Rx Instructions .Route .COMPLEX #60 tabs 09/05/23 rosuvastatin 20 mg tablet See Rx Instructions .Route .COMPLEX #90 tabs 09/05/23 tramadol 50 mg tablet 50 mg PO BID PRN Moderate Pain #60 tabs 09/05/23 fluticasone fur. 200 mcg-umeclid 62.5 mcg-vilant 25 mcg inhalat.powder (Trelegy Ellipta) 1 inh inhalation QDAY #60 ea 10/15/23 losartan 100 mg-hydrochlorothiazide 12.5 mg tablet 1 tab PO QDAY #90 tabs 10/15/23 pantoprazole 40 mg tablet,delayed release (Protonix) 40 mg PO QDAY #30 tabs 10/15/23 prednisone 50 mg tablet 50 mg PO ONCE #3 tabs 11/05/23 Allergies Allergies Allergy/AdvReac Type Severity Reaction Status Date / Time Iodinated Contrast Media Allergy Severe Hives Verified 11/22/23 18:50 [Iodinated Contrast Media - IV Dye] Iodine and Iodide Containing AdvReac Itching Verified 11/22/23 18:50 Produc Sulfa (Sulfonamide AdvReac Itching Verified 11/22/23 18:50 Antibiotics) Review of Systems Constitutional: Denies Fever or Fatigue Head: Reports Normocephalic and Atraumatic Cardiovascular: Denies Chest pain, Chest Pressure or Edema Respiratory: Denies Cough or Shortness of air Gastrointestinal: Denies Nausea, Vomiting, Diarrhea, Abdominal pain or Melena Genitourinary: Denies Dysuria or Frequency Dermatologic: Denies Rashes Neurological: Reports Headache (+states these are chronic, unchanged ) and Syncope Physical Examination Appearance: Positive Well-appearing, Well-nourished, No Apparent Distress and Alert and Oriented x3 Head: Positive Normocephalic and Atraumatic Neck: Positive Supple and Trachea Midline Heart: Positive RRR Respiratory: Positive Breath Sounds Clear, Bilaterally and Respirations Nonlabored GI/: Positive Soft, Nontender, Bowel sounds normal and No Distention Extremities: Positive Pedal Pulses Palpable Bilaterally; Negative Edema Neurological: Positive Alert and Oriented Psychiatric: Positive Normal Judgement, Normal Insight, Affect Appropriate and Mood Appropriate Vital Signs (Last 4 Hours) Vital Signs Last 4 Hours: Vital Signs: Last 4 Hours 11/23/23 08:00 11/23/23 09:00 11/23/23 09:42 Temperature Temperature Source Pulse Rate Respiratory Rate Blood Pressure Blood Pressure Mean Blood Pressure Location Blood Pressure Position O2 Sat by Pulse Oximetry Oxygen Delivery Method Room Air Room Air Room Air 11/23/23 09:59 Temperature 98 F Temperature Source Temporal Artery Scan Pulse Rate 60 Respiratory Rate 18 Blood Pressure 178/84 H Blood Pressure Mean 115 Blood Pressure Location Left Arm Blood Pressure Position Sitting O2 Sat by Pulse Oximetry 100 Oxygen Delivery Method Room Air Labs This Visit Labs This Visit: Labs This Visit 11/22/23 11/22/23 11/22/23 19:13 20:35 20:51 WBC 6.18 RBC 4.10 L Hgb 13.1 Hct 40.0 MCV 97.6 MCH 32.0 H MCHC 32.8 RDW Coeff of Gerry 12.9 Plt Count 144 Immature Gran % (Auto) 0.2 Neut % (Auto) 52.3 Lymph % (Auto) 37.4 [place] % (Auto) 8.3 Eos % (Auto) 1.5 Baso % (Auto) 0.3 Neut # (Auto) 3.2 Lymph # (Auto) 2.3 [place] # (Auto) 0.5 Eos # (Auto) 0.1 Baso # (Auto) 0.0 Immature Gran # (Auto) 0.0 Sodium 131.2 L Potassium 3.55 Chloride 97.5 L Carbon Dioxide 26.1 Anion Gap 11.15 BUN 12.6 Creatinine 0.83 Estimated GFR (MDRD) 66.00 BUN/Creatinine Ratio 15.18 Glucose 178.2 H Calcium 8.38 L Total Bilirubin 0.67 AST 27.6 ALT 17.0 Alkaline Phosphatase 56.2 Troponin I < 0.012 < 0.012 Total Protein 6.05 L Albumin 3.68 Globulin 2.37 Albumin/Globulin Ratio 1.55 D-Dimer 250.83 SARS CoV-2 RNA Rapid LIONEL Negative 11/23/23 05:03 WBC 7.25 RBC 4.28 Hgb 13.5 Hct 40.7 MCV 95.1 MCH 31.5 H MCHC 33.2 RDW Coeff of Gerry 13.2 Plt Count 174 Immature Gran % (Auto) 0.3 Neut % (Auto) 60.8 Lymph % (Auto) 30.1 [place] % (Auto) 7.0 Eos % (Auto) 1.4 Baso % (Auto) 0.4 Neut # (Auto) 4.4 Lymph # (Auto) 2.2 [place] # (Auto) 0.5 Eos # (Auto) 0.1 Baso # (Auto) 0.0 Immature Gran # (Auto) 0.0 Sodium 134.4 L Potassium 3.89 Chloride 100.5 Carbon Dioxide 28.0 Anion Gap 9.79 BUN 10.7 Creatinine 0.73 Estimated GFR (MDRD) 77.00 BUN/Creatinine Ratio 14.65 Glucose 120.1 H D Calcium 8.99 Total Bilirubin 0.61 AST 21.4 ALT 15.9 Alkaline Phosphatase 63.5 Troponin I Total Protein 6.29 L Albumin 3.80 Globulin 2.49 Albumin/Globulin Ratio 1.52 D-Dimer SARS CoV-2 RNA Rapid LIONEL Imaging Imaging: EXAM: CT HEAD WITHOUT CONTRAST HISTORY: Syncope COMPARISON: CT head from 12/07/2021 TECHNIQUE: Multi-slice transaxial images are acquired through the head with 2-D reconstructed images. All CT scans are performed using dose optimization techniques as appropriate to the performed exam and includes at least one of the following: Automated exposure control, adjustment of the mA and/or kV according to size, and the use of iterative reconstruction technique. FINDINGS: The midline structures are central. The ventricles are neither dilated nor displaced. The sulci are prominent at the convexities. The brain attenuation has a normal jenkins-white matter interface. There is low attenuation in the periventricular white matter. No acute intraparenchymal or extraaxial hemorrhage. The calvarium is intact. The paranasal sinuses and mastoid air cells are clear in their visualized portions. IMPRESSION: 1. No acute intracranial process. 2. Small vessel disease and age related involution. EXAM: CHEST RADIOGRAPH TECHNIQUE: Single frontal chest radiograph. HISTORY: Syncope. COMPARISON: 10/22/2023 FINDINGS: Lungs show no consolidation, pleural effusion or pneumothorax. Underlying chronic interstitial changes. The cardiomediastinal silhouette and pulmonary vessels are within normal limits. Upper abdomen is unremarkable. No acute bony abnormality. Mild rightward convexity of the thoracic spine. IMPRESSION: 1. No acute cardiopulmonary disease. Date of Test: 10/29/2023 Ordering Physician: DR. TAWANNA PATEL Occupation: RETIRED Smoking History: 40 PK/YR Reason for Examination: CHEST PAIN, SOB, COPD, HTN, CAROTID STENOSIS, CARDIOMEGALY Current Medications: CLONAZEPAM, ELIQUIS, LOSARTAN-HCTZ, METOPROLOL, PROTONIX, ROSUVASTATIN, TRAMADOL Height: 62"Weight: 56 kg 123 lbs Target Heart Rate: 119/141 S-T Segment Stage Time HR BPM BP MMHG Rhythm +/- Elevation Depression Symptoms Control Sitting 55 112/82 SR X NONE Dobutamine 250mg/D5W 5mcg/KG/mn 10mcg/KG/mn 3" 59 138/90 SR X NONE 15mcg/KG/mn 2" 63 130/58 SR X NONE 20mcg/KG/mn 2" 73 SR X NONE 25mcg/KG/mn 2" 83 142/58 SR X NONE 30mcg/KG/mn 2" 91 SR X NONE 35mcg/KG/mn :45 101 152/57 SR X NONE 40mcg/KG/mn 3" MIN POST INFUSION 82 130/78 SR X NONE 6" MIN POST INFUSION 75 130/76 SR X NONE DURATION OF INFUSION 11:45 MAXIMUM HEART RATE REACHED 101 BPM 98% OXYGEN SATURATION WITH DOBUTAMINE INFUSION Interpretation: 1. NO EVIDENCE OF ISCHEMIA FROM RESTING HEART RATE 55 BPM TO 101 BPM WITH DOBUTAMINE INFUSION 2. NO CHEST PAIN OR DISCOMFORT 3. SESTAMIBI TO FOLLOW Date of Exam: 10/22/2023 Ordering Physician: Cristiano REYES, ROMEO Room #: OP Reason for Echo: NON-RHEUMATIC MITRAL VALVE PROLAPSE, SHORTNESS OF BREATH M-Mode Normal Adult Results LV Dimensions Normal Adult Results AoV Opening excursions >1.6 >1.6 LVEDD-base- 3.5-5.8 3.4 Ao root dimensions 2.0-3.7 2.6 LVESD-base- 3.1-4.6 L. Atrium dimensions 1.9-3.8 3.4 Post. Wall thickness 0.8-1.1 1.0 IV septum (thickness) 0.7-1.2 1.1 Post. Wall excursion 0.72-1.3 NORMAL Septal motion NORMAL Systolic motion R. Ventricular cavity 1.5-2.0 NORMAL LVEF 60% 68% Paradoxical septal wall motion NORMAL [] 2-D : MITRAL VALVE PROLAPSE NOTED LEFT PARASTERNAL LONG AXIS AND APICAL FOUR CHAMBER VIEW. NORMAL LEFT VENTRICLE SIZE AND LEFT VENTRICULAR CONTRACTILITY. TRICUSPID VALVE, PULMONARY VALVE, AND AORTIC VALVE NORMAL. NO EFFUSION AND NO THROMBUS. M-MODE: MV: MITRAL VALVE PROLAPSE LATE SYSTOLIC AV: NORMAL TV: NORMAL PV: NORMAL CHAMBER SIZE: NORMAL WALL MOTION: NORMAL PERICARDIUM: NORMAL INTERPRETATION: 1. MITRAL VALVE PROLAPSE LATE SYSTOLIC. 2. TRICUSPID VALVE, PULMONARY VALVE, AND AORTIC VALVE NORMAL. 3. NORMAL LEFT VENTRICLE SIZE AND LEFT VENTRICULAR CONTRACTILITY. Review Review Statement: I have independently reviewed and interpreted the labs/EKGs/imaging that were ordered by the ER provider. I have reviewed all outside records that are available currently in our EMR including imaging/notes/labs from previous visits. Plan Reccomendations/Plan: 1. Hypotension with syncope/symptomatic - Following clonidine 0.2 mg in the ER. Resolved now. 2. Hypertension - Has had steroids and missed some doses of antihypertensives this week. Advised to restart normal regimen. 3. Anxiety - Cont home meds 4. GERD - Cont home meds 5. Hyperlipidemia - Cont home meds. Patient's blood pressure pills were then held due to her hypotension. And on the date of discharge her blood pressure is again consistently elevated. her usual home meds were reordered and her blood pressure improved. Discussed with her that she likely needs to just get back on her usual regimen as it normally works well for her but was disrupted this past week. Trops were negative. No arrhythmias on telemetry. She feels well and has been asking to go home since she got admitted last night. Advised her to try to not be obsessive with her blood pressure cuff but to log her blood pressures and take them to her PCP for follow-up this week. Advised to return to the ER with any worsening symptoms patient agrees to plan of care. Of note patient did have a recent cardiac workup with Dr. Camila Patel which was normal. Discharge diagnoses: 1. Acute Hypotension with syncope, symptomatic - Resolved 2. Hypertension. chronic 3. Anxiety 4. GERD 5. Hyperlipidemia Additional Planning: Case discussed with ED Physician, Dr. Castillo. DVT Prophylaxis: Eliquis Advanced Care Plannin minutes spent discussing advance care planning. Admit to: Obs Discussed Plan of Care with Dr. Cristiano Paetl. Review With Patient Reviewed with Patient and Family: Patient and family have been counseled on condition and care plan and have no immediate questions. I have personally discussed and reviewed the patient's visit/current labs/imaging/decision making with Dr. Cristiano Patel, my supervising attending. Total number of minutes spent with patient [85] min. More than 50% of the time spent with this patient was devoted to counseling and coordination of care. Time of Admission:11/22/23 20:57 Time of Discharge: 11/23/23 1045 Discharge Plan Discharge Discharge Orders: Discharge Patient (ONCE); Ordered 11/23/23 Ordered By: OCTAVIANO SAMPSON Activity Restrictions/Additional Instructions: DISCHARGE TO HOME CONTINUE BLOOD PRESSURE MEDICATIONS PRESCRIBED FOLLOW UP WITH DR. PETERSON OFFICE THIS COMING WEEK DIET: HEART HEALTHY ACTIVITY: TOLERATED Instructions: Hypertension in the Older Adult (DC) Patient Disposition: HOME SELF-CARE Prescriptions: Continued metoprolol tartrate 25 mg tablet See Rx Instructions .ROUTE .COMPLEX Qty: 60 2RF Dose Instruction: TAKE ONE TABLET TWICE DAILY Rx Instructions: TAKE ONE TABLET TWICE DAILY rosuvastatin 20 mg tablet See Rx Instructions .ROUTE .COMPLEX Qty: 90 1RF Dose Instruction: TAKE ONE TABLET DAILY GENERIC FOR CRESTOR Rx Instructions: TAKE ONE TABLET DAILY GENERIC FOR CRESTOR clonazepam 0.5 mg tablet 0.5 mg PO BID PRN (Reason: anxiety) Qty: 60 2RF tramadol 50 mg tablet 50 mg PO BID PRN (Reason: Moderate Pain) Qty: 60 2RF Eliquis 5 mg tablet See Rx Instructions .ROUTE .COMPLEX Qty: 60 2RF Dose Instruction: TAKE ONE TABLET TWICE DAILY Rx Instructions: TAKE ONE TABLET TWICE DAILY losartan-hydrochlorothiazide 100-12.5 mg tablet 1 tab PO QDAY Qty: 90 1RF Trelegy Ellipta 200-62.5-25 mcg blister with device 1 inh inhalation QDAY Qty: 60 4RF pantoprazole [Protonix] 40 mg tablet,delayed release (DR/EC) 40 mg PO QDAY Qty: 30 2RF Discontinued prednisone 50 mg tablet 50 mg PO ONCE Qty: 3 0RF Rx Instructions: 13hr prior to test, 7 hr prior to test, 1 hr prior to test No Action (DME) OneTouch Ultra Test Strip See Rx Instructions .ROUTE .COMPLEX Qty: 100 5RF Dose Instruction: DIRECTED E11.9 Rx Instructions: DIRECTED E11.9 TEST DAILY (DME) Contour Next Test Strips Strip See Rx Instructions .ROUTE Qty: 100 5RF Rx Instructions: As directed E11.9 TEST DAILY (DME) lancets [OneTouch Delica Plus Lancet] 30 gauge misc See Rx Instructions .ROUTE .COMPLEX Qty: 100 5RF Dose Instruction: DIRECTED E11.9 Rx Instructions: DIRECTED E11.9 TEST DAILY Did you review [place] [employer] for ALL controlled substances?: Not Applicable Discussed opioids are addictive and Narcan is available by prescription or from pharmacy.: No Condition: Stable
== END 2023-11-23 12:51 | disposition home or self-care (01) ==
LOC: ED 18:44 → MEDSURG B 18:44
PROVIDERS: ADMIT Physician Assistant; ATTEND Hospitalist